=== PATIENT | female | born 1950 | race Two or more races ===

== ENCOUNTER 2018-11-05 06:22 | Day surgery (SDC) | payer MEDICARE, OTHER ==
--- NOTE | 2018-11-02 15:45 | Pre-op HX & Phy Repo 2 SIG ---
DATE OF ADMISSION: 11/05/2018 DATE OF ANTICIPATED SURGERY: 11/05/2018. PREOPERATIVE DIAGNOSIS: Retinal detachment, right eye, macula off. BRIEF NOTE: This is a first [facility] admission for the patient, who is a very pleasant 68-year-old lady, who complained of progressive blurring of vision with shadow in the right eye for the past two weeks. She was noted to have an inferior retinal detachment with the macula off. PAST OCULAR HISTORY: Remarkable for cataract surgery done five years ago in both eyes. She had laser treatment to retinal tear successful in the left eye some time ago. PAST MEDICAL HISTORY: Remarkable for elevated cholesterol and thyroid issues. PAST SURGICAL HISTORY: She had prior knee surgery on the right and a wrist fracture in 2018. MEDICATIONS: She is on anticholesterol medications and thyroid supplement. She also takes aspirin. ALLERGIES: She has no known allergies. PHYSICAL EXAMINATION: Best vision at the time of admission was 20/200 in the right eye and 20/20- in the left. There was an absence of superior on the right and a central scotoma. The left appeared benign. Posterior chamber lens was seen in either eye. Fundus exam of the right eye showed an inferior retinal detachment extending from the 2 o'clock position around to the 9:30 position with the macula off. Small perivascular holes were seen at about the 6:30 position just anterior to the equator. The left fundus showed old laser scars at the 4 o'clock position. The retina was attached. ASSESSMENT: Macula off retinal detachment, right eye. PLAN: The plan is to perform a pars plana vitrectomy with scleral buckle, endolaser, and gas injection on the right. The risks and benefits of surgery gone over with the patient with potential infection, hemorrhage, glaucoma, and remote possibility of loss of the eye, the risk of anesthesia was discussed. The patient understands and consents to surgery, which will be performed on Monday morning. Erickson Magana M.D. DR: SANTOS JOB#: [id number] CC:
--- NOTE | 2018-11-02 16:10 | NUR ---
[employer] translation services used to obtained medical history with [employer]er[employer] machine operator :Theresa ID # [id number].
[2018-11-05] VITALS (12 sets, daily range): BP systolic 14–161; BP diastolic 59–95
[~2018-11-05] VITALS: Ht 165.1 cm; Wt 93.9 kg
[~2018-11-05 06:22] MED LIST: LEVOTHYROXINE75 MCG ORAL; Pred Forte 1% Opth Susp 1ml RIGHT EYE SCH; SIMVASTATIN20 MG ORAL
[2018-11-05] MEDS: Flurbiprofen 0.03% Opth Sol 2.5ml RIGHT EYE SCH ×3 (06:54→07:13)
[2018-11-05] MEDS: Cyclopentolate 1% Opth Sol 2ml RIGHT EYE SCH ×3 (06:54→07:13)
[2018-11-05] MEDS: Vigamox Opth Soln 3ml RIGHT EYE SCH ×3 (06:54→07:13)
[2018-11-05] MEDS: Phenylephrine 2.5% Op 2ml Soln RIGHT EYE SCH ×3 (06:54→07:13)
[2018-11-05 07:21] LABS: BASOPHILS % (AUTO) 1.3 % (0.0-2.0); EOSINOPHILS % (AUTO) 4.4 % (0.0-3.0); HEMATOCRIT 42.3 % (37.0-47.0); HEMOGLOBIN 13.8 G/DL (12.0-16.0); LYMPHOCYTES % (AUTO) 33.3 % (20.0-45.0); MEAN CORPUSCULAR VOLUME 91 FL (80-99); MONOCYTES % (AUTO) 9.8 % (1.0-10.0); NEUTROPHILS % (AUTO) 51.2 % (45.0-75.0); PLATELET COUNT 228 K/UL (150-450); RED BLOOD COUNT 4.66 M/UL (4.20-5.40); RED CELL DISTRIBUTION WIDTH 12.8 % (11.6-14.8); WHITE BLOOD COUNT 4.3 K/UL (4.8-10.8)
[2018-11-05 07:28] LABS: ANION GAP 8 mmol/L (5-15); BLOOD UREA NITROGEN 13 mg/dL (7-18); CALCIUM 9.3 MG/DL (8.5-10.1); CARBON DIOXIDE 26 MMOL/L (21-32); CHLORIDE 108 MMOL/L (98-107); CREATININE 0.8 MG/DL (0.55-1.30); POTASSIUM 3.8 MMOL/L (3.5-5.1); SODIUM 142 MMOL/L (136-145)
[2018-11-05] MEDS ORDERED: fentaNYL 100 mcg/2 mL IV ONE ×2 (07:30→11:55)
[2018-11-05] MEDS ORDERED: Midazolam 2mg/2ml Inj ONE (07:30)
[2018-11-05] MEDS ORDERED: LR 1000ml 1,000 ML IVLG SCH (08:10)
[2018-11-05] MEDS ORDERED: DiphenhydrAMINE 50mg/ml Inj IVP PRN (08:15)
[2018-11-05] MEDS ORDERED: Midazolam 2mg/2ml Inj IVP PRN (08:15)
[2018-11-05] MEDS ORDERED: Atropine Inj 1mg/10ml Syr IV PRN (08:15)
[2018-11-05] MEDS ORDERED: fentaNYL 100 mcg/2 mL IV PRN (08:15)
--- NOTE | 2018-11-05 08:52 | Pre-Procedure Note/Attestation ---
Pre-Procedure Note/Attestation Complete Prior to Procedure Planned Procedure: right Procedure Narrative: Scleral buckle, Pars Plan vitrectomy, endolaser, cryopexy. gas-fluid exchange Right eye Indications for Procedure Pre-Operative Diagnosis: Retinal detachment Right eye, macula off Attestation I attest that I discussed the nature of the procedure; its benefits; risks and complications; and alternatives (and the risks and benefits of such alternatives ), prior to the procedure, with the patient (or the patient's legal community engagement representative). I attest that, if there was a reasonable possibility of needing a blood transfusion, the patient (or the patient's legal community engagement representative) was given the [place] Department [employer] standardized written summary, pursuant to the Blake [place] Blood Safety Act ([place] Health and Safety Code # 1645, as amended). I attest that I re-evaluated the patient just prior to the surgery and that there has been no change in the patient's H&P, except as documented below: Erickson Magana MD Nov 05, 2018 08:52
[2018-11-05] MEDS ORDERED: BSS 15ml BTL ONE (09:00)
[2018-11-05] MEDS ORDERED: Polysporin Opth Oint 3.5gm ONE (09:00)
[2018-11-05] MEDS ORDERED: Pred Forte 1% Opth Susp 1ml ONE (09:00)
[2018-11-05] MEDS ORDERED: Bupivacaine 0.75% 30ml vial INJ ONE (09:00)
[2018-11-05] MEDS ORDERED: Dexamethasone 4mg/ml vial ONE (09:00)
[2018-11-05] MEDS ORDERED: LR 1000ml ONE (09:00)
[2018-11-05] MEDS ORDERED: Lidocaine 2% MPF 5ml Vial INJ ONE (09:00)
[2018-11-05] MEDS ORDERED: Sterile Water Irrig 1000ml IRRIG ONE (09:00)
[2018-11-05] MEDS ORDERED: NS Irrig 1000ml ONE (09:00)
[2018-11-05] MEDS ORDERED: Atropine Sulfate 0.4mg/ml inj ONE (09:00)
[2018-11-05] MEDS ORDERED: Propofol 200mg/20ml IV ONE (09:00)
[2018-11-05] MEDS ORDERED: Lidocaine 1% MPF 10mg/ml 5ml ONE (09:00)
[2018-11-05] MEDS ORDERED: EPINEPHrine 1mg/1ml Amp ONE (09:00)
[2018-11-05] MEDS ORDERED: Povidone-Iodine 5% opth solution ONE (09:17)
[2018-11-05] MEDS ORDERED: Sodium Hyaluronate 10 mg/ml 0.85ml ONE (09:18)
[2018-11-05] MEDS ORDERED: Kenalog-10 5ml Inj ONE (11:16)
[2018-11-05] MEDS ORDERED: BSS 500ml btl ONE (11:16)
--- NOTE | 2018-11-05 11:38 | Brief Operative Note ---
Immediate Post Operative Note Operative Note Chief Complaint: Shadow in vision Right eye Pre-op Diagnosis: Retinal detachment Right eye, macula off Procedure: PPV, scleral buckle, endolaser, cryopexy, Perfluoron placement and removal, gas fluid exchange 24% SF-6 Right eye Post-op Diagnosis: same as pre-op Surgeon: luis angel Anesthesiologist: medardo Anesthesia: general Specimen: none Complications: none Condition: stable Fluids: per anesthesia Estimated Blood Loss: none Drains: none Implant(s) used?: Yes - 240 band, 287 tire.70 mehreenve Erickson Magana MD Nov 05, 2018 11:38
--- NOTE | 2018-11-05 11:58 | Anethesia Preoperative Eval ---
Anesthesia Pre-op PMH/ROS General Date of Evaluation: Nov 05, 2018 Time of Evaluation: 08:48 Anesthesiologist: karla ASA Score: ASA 3 Mallampati Score Class I : Soft palate, uvula, fauces, pillars visible Class II: Soft palate, uvula, fauces visible Class III: Soft palate, base of uvula visible Class IV: Only hard plate visible Mallampati Classification: Class II Surgeon: luis angel Diagnosis: Retinal detachment right eye Surgical Procedure: pars plana vitrectomy, scleral buckle, cryo, endolaser, gas /fluid exchange Anesthesia History: none Social History: smoking - former Family History: no anesthesia problems Allergies: Coded Allergies: No Known Allergies (Unverified , 11/05/18) Medications: see eMAR Patient NPO?: Yes Past Medical History Cardiovascular: Reports: other - hypercholesterolemia Neurologic/Psychiatric: Reports: depression/anxiety Endocrine: Reports: hypothyroidism Musculoskeletal/Integumentary: Reports: OA, DJD - tka left knee, btl Other: obesity Anesthesia Pre-op Phys. Exam Physician Exam Constitutional: NAD Neurologic: CN 2-12 intact Cardiovascular: RRR Gastrointestinal: S/NT/ND Airway Exam Mallampati Score: Class II MO: limited Neck: short TMD: 2fb ROM: limited Teeth: missing Dentures: upper, lower Anesthesia Pre-op A/P Labs Hematology Test 11/05/18 07:10 White Blood Count 4.3 K/UL (4.8-10.8) L Red Blood Count 4.66 M/UL (4.20-5.40) Hemoglobin 13.8 G/DL (12.0-16.0) Hematocrit 42.3 % (37.0-47.0) Mean Corpuscular Volume 91 FL (80-99) Mean Corpuscular Hemoglobin 29.7 PG (27.0-31.0) Mean Corpuscular Hemoglobin Concent 32.7 G/DL (32.0-36.0) Red Cell Distribution Width 12.8 % (11.6-14.8) Platelet Count 228 K/UL (150-450) Mean Platelet Volume 8.8 FL (6.5-10.1) Neutrophils (%) (Auto) 51.2 % (45.0-75.0) Lymphocytes (%) (Auto) 33.3 % (20.0-45.0) Monocytes (%) (Auto) 9.8 % (1.0-10.0) Eosinophils (%) (Auto) 4.4 % (0.0-3.0) H Basophils (%) (Auto) 1.3 % (0.0-2.0) Chemistry Test 11/05/18 07:10 Sodium Level 142 MMOL/L (136-145) Potassium Level 3.8 MMOL/L (3.5-5.1) Chloride Level 108 MMOL/L (98-107) H Carbon Dioxide Level 26 MMOL/L (21-32) Anion Gap 8 mmol/L (5-15) Blood Urea Nitrogen 13 mg/dL (7-18) Creatinine 0.8 MG/DL (0.55-1.30) Estimat Glomerular Filtration Rate > 60 mL/min (>60) Glucose Level 100 MG/DL (74-106) Calcium Level 9.3 MG/DL (8.5-10.1) Risk Assessment & Plan Assessment: asa3 Plan: gen Status Change Before Surgery: No Pre-Antibiotics Drug: Daisha Childs MD Nov 05, 2018 11:58
--- NOTE | 2018-11-05 12:00 | Immediate Post-Op Evaluation ---
Immediate Post-Op Evalulation Immediate Post-Op Evalulation Procedure: pars plana vitrectomy, cryo scleral buckle, endolaser gas/fluid exchange 23 Date of Evaluation: Nov 05, 2018 Time of Evaluation: 11:52 IV Fluids: lr 1000ml, 0.9ns 25ml Blood Products: none Estimated Blood Loss: negligible Blood Pressure Systolic: 149 Blood Pressure Diastolic: 77 Pulse Rate: 94 Respiratory Rate: 18 O2 Sat by Pulse Oximetry: 99 Temperature (Fahrenheit): 97.0 Pain Score (1-10): 0 Nausea: No Vomiting: No Complications none Patient Status: awake, reacts, patent, extubated Hydration Status: adequate Drug: Daisha Childs MD Nov 05, 2018 12:00
--- NOTE | 2018-11-05 12:02 | 48 Hour Post Anesthesia Eval ---
Post Anesthesia Evaluation Procedure: pars plana vitrectomy, cryo scleral buckle, endolaser gas/fluid exchange 23 Date of Evaluation: Nov 05, 2018 Time of Evaluation: 12:00 Blood Pressure Systolic: 151 0: 78 Pulse Rate: 88 Respiratory Rate: 18 Temperature (Fahrenheit): 97.0 O2 Sat by Pulse Oximetry: 97 Airway: patent Nausea: No Vomiting: No Pain Intensity: 0 Hydration Status: adequate Cardiopulmonary Status: stable Mental Status/LOC: patient returned to baseline Post-Anesthesia Complications: none Follow-up care needed: N/A Daisha Langley MD Nov 05, 2018 12:02
[2018-11-05] MEDS ORDERED: HYDROcodone/Acetamin 5/325 tab ORAL PRN (14:01)
--- NOTE | 2018-11-06 11:22 | Cardiology Report ---
APPROVED REPORT EKG Measurement Heart [id number] Normal sinus rhythm Normal ECG
--- NOTE | 2018-11-06 16:55 | Operative Note - Dictated ---
DATE OF OPERATION: 11/05/2018 PREOPERATIVE DIAGNOSIS: Macula-off retinal detachment, right eye. POSTOPERATIVE DIAGNOSIS: Macula-off retinal detachment, right eye. PROCEDURES: 1. Pars plana vitrectomy. 2. Scleral buckle. 3. Endolaser. 4. Peripheral cryopexy. 5. Perfluoron placement and removal. 6. Gas-fluid exchange, right eye. SURGEON: Erickson Magana M.D. DREDGE MATE: None. ANESTHESIA: LMA general. ANESTHESIOLOGIST: Dr. Campos. JUSTIFICATION FOR SURGERY: This 68-year-old lady developed a shadow and eventual loss of central vision in the right eye over the past two weeks. She was found to have a macula-off retinal detachment. BRIEF NOTE: The patient was brought to the operating room, placed on OR table in supine position. After a time-out was performed and agreed upon by the staff, general LMA anesthesia was induced by Dr. Campos. The patient was then prepped and draped in the normal manner. A lid speculum inserted into the right eye. A 360-degree peritomy was cut with relaxation incisions at the 3 and 9 o'clock positions. Sub-Tenon's anesthetic was then injected in all four quadrants. The muscles were isolated and turned on white and black ties. Examination revealed area of a small peripheral break at the 4 o'clock position and a second area at roughly the 7 o'clock position with pigment at 6. These areas were marked on the sclera and gentle cryopexy was used to treat the suspicious areas. Preparation for scleral buckle was then made. Mattress sutures of 5-0 nylon were placed 6 mm apart in the inferior quadrant, centered 13 mm from the limbus. Mattress sutures were placed in superior quadrant, also centered 13 mm from the limbus roughly 2.5 mm apart. A segment of 240 band was then chosen and placed around the eye and secured supranasally with a 70 sleeve. A segment of 287 tire was then chosen and placed beneath the inferior mattress sutures and beneath the inferior rectus muscle. The sutures were tied and all knots rotated posteriorly. The buckle was tightened loosely for moderate buckling affect. Preparation was then made for pars plana vitrectomy. Using a 23-gauge trocar system, cannulas were placed in all except infranasal quadrant. Infusion secured inferotemporally. Vitrectomy was begun posterior to the lens implant. A central core vitrectomy was done followed by peripheral vitrectomy leaving a small vitreous skirt. Shaving of the vitreous in the periphery was performed. A small break noted at the 7 o'clock position was marked with the Endodiathermy. It was elected not to perform a posterior retinotomy, but instead Perfluoron was slowly injected into the eye and fluid was drained from the inferotemporal break. Roughly 90% of the fluid was removed in this way. The endolaser was brought into the eye and a power of 0.3 son, duration 0.2 seconds, a total of 581 lesions were applied reinforcing the light cryo especially at the 7 o'clock break. Additional suspicious lesions were also treated with laser. An air-fluid exchange was then performed using extrusion to remove the Perfluoron and remaining of vitreous fluid. The retina was noted to be flattened nicely and remained dry free of heavy Perfluoron. At this juncture, a gas-gas exchange was performed using a 24% mixture of SF6. The superior cannulas were then removed from the eye and the wounds closed with 8-0 Vicryl suture. With the eye inflated to normal tension, the infusion line was removed and this sclerotomy was closed in a similar fashion. The bridle sutures were removed and conjunctiva and Tenon's were pulled up and secured with 6-0 plain catgut with the knots buried at 3 and 9. Subconjunctival Decadron and gentamicin were then injected inferiorly and topical Maxitrol ointment, prednisolone drops, and moxifloxacin drops were instilled. The eye was patched and shielded. The patient taken to recovery in excellent condition. There were no complications. The patient is to be placed in a face-down or left side down position for 45 minutes or hour over the next 24 hours. Erickson Magana M.D. DR: SANTOS JOB#: [id number] CC: Erickson Magana M.D.; Fax#: [phone]
--- NOTE | 2018-11-06 16:55 | Pre-op HX & Phy Repo 2 SIG ---
DATE OF ADMISSION: 11/05/2018 PRESURGICAL INTERNAL MEDICINE HISTORY AND PHYSICAL REASON FOR EVALUATION: I was asked by Dr. Erickson Magana to see this 68-year-old female who is going for elective surgery on the right eye. The patient has retinal detachment, right eye. The patient was examined. Chart was reviewed in the outpatient surgical procedure at [facility]. PAST MEDICAL HISTORY/REVIEW OF SYSTEMS: Remarkable for hypothyroidism. No history of hypertension. No chest pain, palpitation, or heart attack. Denies history of respiratory problem. The patient has history of hyperlipidemia. No GI bleeding or heartburn. No hepatitis. Denies history of renal failure. No respiratory problem. FAMILY HISTORY: Father has diabetes mellitus and mother hypertension. ALLERGIES: Not known. PRESENT MEDICATIONS: Include levothyroxine, aspirin, and statin. HABITS: The patient smoked for approximately 25 years heavily, stopped smoking 20 years ago. Denies alcohol or street drug use. PHYSICAL EXAMINATION: GENERAL: The patient is alert, well-developed and well-nourished female, in her 60s, no acute distress. VITAL SIGNS: Blood pressure 141/84, temperature 97.3, pulse 68 per minute and regular, O2 saturation 99% on room air. SKIN: Dry, warm, clear. No rashes. No ulceration. LYMPH NODES: Not enlarged HEENT: Head normocephalic and atraumatic. Ears, clear. Eyes, full description per Dr. Erickson Magana. Mouth, clear and moist. Wears dentures, upper and low. NECK: Supple. No jugular distention. Carotids artery +2. Trachea midline. CHEST: No deformity or asymmetry. LUNGS: Clear to auscultation and percussion. No rales or rhonchi. HEART: Sinus rhythm. No ectopy. No murmur. No S3 or S4. ABDOMEN: Soft, obese. Liver and spleen not enlarged. No rebound. EXTREMITIES: Left knee has scar, post total knee replacement and left knee scar fracture of the GENITOURINARY: Normal for gender. CVA nontender. NERVOUS SYSTEM: No tremor. No nystagmus. LABORATORY AND DIAGNOSTIC DATA: ECG normal sinus rhythm, 61 per minute, normal ECG. Laboratory pending. IMPRESSION: 1. Retinal detachment, right eye. 2. Hypothyroidism. 3. Hyperlipidemia. PLAN: 1. Pars plana vitrectomy. 2. Scleral buckle. 3. Endolaser right eye per Dr. Erickson Magana. CONCLUSION: The patient is a 68-year-old female, has history of hypothyroidism controlled and hyperlipidemia. Vital signs stable. ECG is normal. Laboratory work pending. The patient's condition optimized for surgery. The patient's last p.o. intake 7 p.m. yesterday. Thank you very much, Dr. Magana, for privilege to participate in presurgical care. Ismael Coppola M.D. DR: William JOB#: [id number] CC:
== END 2018-11-05 13:30 | disposition home or self-care (01) ==
LOC: SUR 06:22
DX: H33.21 Serous retinal detachment, right eye (principal); Z79.82 Long term (current) use of aspirin; Z79.899 Other long term (current) drug therapy; E03.9 Hypothyroidism, unspecified; E78.5 Hyperlipidemia, unspecified; E78.00 Pure hypercholesterolemia, unspecified; M19.90 Unspecified osteoarthritis, unspecified site; E66.9 Obesity, unspecified; Z68.34 Body mass index [BMI] 34.0-34.9, adult
CPT/HCPCS: 36415; 67108; 80048; 85025; 93005; J0171; J0360; J0461; J1100; J2250; J2704; J3010; J3301; J3470; J3490; 94003; 94150